=== PATIENT | male | born 1995 | race Caucasian/White ===

== ENCOUNTER 2019-03-15 23:10 | Emergency (ER) | payer OTHER ==
[~2019-03-15] VITALS: Ht 190.5 cm; Wt 108.9 kg
[2019-03-15 23:15] VITALS: BP 148/84
[2019-03-15] MEDS ORDERED: SOLU-MEDROL IV STA (23:34)
[2019-03-15] MEDS ORDERED: DUONEB 0.5 MG-3 MG/3 ML SOLN IH STA (23:34)
[2019-03-15] MEDS ORDERED: DECADRON IH STA (23:34)
[2019-03-15] MEDS ORDERED: TYLENOL PO STA (23:34)
--- NOTE | 2019-03-15 23:39 | ER.PDOC ---
General Chief Complaint: Chest Pain-Cardiac Nature Stated Complaint: CHEST PAIN Time seen by MD: 23:38 Source: patient Exam Limitations: no limitations History of Present Illness Initial Comments Chest pain Timing/Duration: 1 hour Severity/Quality: moderate Radiation: no radiation Prior CP/Workup: No Prior Chest Pain Nitro Today/Relief: No Nitro Taken Today Aspirin Today: No Aspirin Today Associated Symptoms: cough, shortness of breath Past Medical History Medical History: hypertension Surgical History: shoulder, tonsillectomy Social History Smoking: quit less than 1 year, chew Alcohol Use: rarely Drug Use: none Constitutional: no symptoms reported EENTM: no symptoms reported Respiratory: see HPI Cardiovascular: see HPI Gastrointestinal: no symptoms reported All Other Systems: Reviewed and Negative Physical Exam General Appearance: No Apparent Distress, WD/WN Neck: Non-Tender, Full Range of Motion, Supple, Normal Inspection Respiratory: chest non-tender, no respiratory distress, wheezing Cardiovascular: Normal Peripheral Pulses, Regular Rate, Rhythm, No Edema, No Gallop, No JVD, No Murmur Gastrointestinal: Normal Bowel Sounds, No Organomegaly, No Pulsatile Mass, Non Tender, Soft Extremities: Normal Range of Motion, Non-Tender, Normal Inspection, No Pedal Edema, No Calf Tenderness, Normal Capillary Refill 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 EKG/XRAY/CT/US EKG Comments: Normal XRAY: chest (No active disease) Course Vitals & review Data Vital Sign - Last 24 Hours 03/15/19 03/15/19 03/15/19 23:15 23:15 23:15 Temp 98.2 98.2 98.2 98.2 98.2 98.2 Pulse 81 74 77 Resp 20 20 18 B/P (MAP) 148/84 (105) Pulse Ox 99 97 O2 Delivery Room Air Room Air Sepsis Infection Criteria Pres: None O2 Sat by Pulse Oximetry: 97 Departure Time of Disposition: 00:29 Disposition: 01 HOME, SELF-CARE Impression: Primary Impression: Bronchitis Condition: Improved Referrals: PCP,UNKNOWN (PCP) PRIMARY CARE PROVIDER Additional Instructions: Z Pack Medrol dose pack Albuterol HFA F/U with PCP in 3-4 days Duration or Time Spent with Pa: 60 mins DEJA PERSAUD MD Mar 15, 2019 23:39
[2019-03-15] MEDS ORDERED: TYLENOL PO ONE ×2 (23:40→23:44)
[2019-03-15] MEDS ORDERED: SOLU-MEDROL ONE (23:41)
--- NOTE | 2019-03-15 23:41 | PCM.EKG ---
[facility] Test Date: 2019-03-15 Test Time: 23:20:16 Pat Name: EDY TOMPKINS Department: Room: Gender: M Multi Site Leasing Consultant: : [id number] Requested By: DEJA PERSAUD Order Number: [id number] Reading MD: Measurements Intervals [place] Rate: 78 P: 53 NE: 134 QRS: 32 QRSD: 96 T: 62 QT: 362 QTc: 412 Interpretive Statements Normal sinus rhythm Normal ECG No previous ECG available for comparison Please click the below link to view image of tracing.
[2019-03-15] MEDS ORDERED: DECADRON ONE (23:44)
[2019-03-15] MEDS ORDERED: DUONEB 0.5 MG-3 MG/3 ML SOLN IH ONE (23:44)
[2019-03-15 23:49] LABS: BASOPHIL # 0.1 10^3/uL (0.0-0.1); BASOPHIL % 0.7 % (0.0-0.2); EOSINOPHIL # 0.4 10^3/uL (0.0-0.2); EOSINOPHIL % 4.3 % (0.0-5.0); HEMOGLOBIN 16.2 g/dL (13.9-16.3); LYMPHOCYTES # 3.1 10^3/uL (1.0-4.8); LYMPHOCYTES % 33.2 % (24.0-44.0); MEAN CELL HGB 29.2 pg (26-34); MEAN CELL HGB CONCENTRATION 35.3 g/dL (33-37); MEAN CORP VOLUME 82.7 fL (78-100); MEAN PLATELET VOLUME 10.3 fL (7.8-11.0); MONOCYTES # 1.1 10^3/uL (0.3-0.8); MONOCYTES % 11.7 % (5.0-12.0); NEUTROPHIL # 4.7 10^3/uL (1.8-7.7); RED CELL DISTRIBUTION WIDTH 14.2 % (11.5-14.5); WHITE BLOOD CELL 9.5 10^3/uL (4.5-11.0)
--- NOTE | 2019-03-16 00:03 | DIREP ---
PROCEDURE:CHEST 1 VIEW COMPARISON:None. INDICATIONS:Chest pain FINDINGS: LUNGS/PLEURA:No significant pulmonary parenchymal abnormalities. No effusions. VASCULATURE:Normal. Unremarkable pulmonary vasculature. CARDIAC:Normal. No cardiac silhouette abnormality or cardiomegaly. MEDIASTINUM:Normal. No visible mass or adenopathy. BONES:Normal. No fracture or visible bony lesion. OTHER:Negative. CONCLUSION:No acute disease. Dictated by: Marbin Blanco MD on 03/16/2019 at 00:00 AM
--- NOTE | 2019-03-16 00:04 | DIREP ---
PROCEDURE:CT HEAD OR BRAIN W/O CONTRAST COMPARISON:None. INDICATIONS:headache TECHNIQUE:CT images were created without intravenous contrast. FINDINGS: VENTRICLES:The ventricles are normal in size and configuration. CEREBRUM:Normal cerebral morphology with appropriate nobles white matter differentiation. CEREBELLUM:Negative. BRAINSTEM:Negative. BASAL CISTERNS:Negative. HEMORRHAGE:No MASS LESION:No ACUTE INFARCT:No SKULL:Normal. SINUSES:Normal. OTHER:None CONCLUSION:Normal examination. Dictated by: Marbin Blanco MD on 03/16/2019 at 00:02 AM
[2019-03-16 00:11] VITALS: BP 137/76
[2019-03-16 00:11] LABS: ALANINE AMINOTRANSFERASE(ML) 30 U/L (12-78); ALKALINE PHOSPHATASE 82 U/L (50-136); ASPARTATE AMINO TRANSFERASE 18 U/L (0-35); CALCIUM 10.1 mg/dL (8.4-10.5); CARBON DIOXIDE 24.8 mmol/L (20.0-32); GLUCOSE 96 mg/dL (70-110)
--- NOTE | 2019-03-16 00:40 | NUR ---
IV IV REMOVED CATHETER INTACT. APPLIED PRESSURE TO SITE WITH NO FURTHER BLEEDING. APPLIED COBAN DRESSING.
[2019-03-16 00:42] VITALS: BP 136/82
[2019-03-16 00:52] VITALS: BP 136/82
== END 2019-03-16 00:45 | disposition home or self-care (01) ==
LOC: ER 23:10
DX: J40 Bronchitis, not specified as acute or chronic (principal); I10 Essential (primary) hypertension; F17.220 Nicotine dependence, chewing tobacco, uncomplicated; Z90.89 Acquired absence of other organs
CPT/HCPCS: 36415; 70450; 71045; 80053; 82550; 83880; 84484; 85025; 85379; 93005; 94640; 96374; 99285; A9150 ×2; J1100; J2930; J7620